=== PATIENT | male | born 1960 | race Caucasian/White ===

== ENCOUNTER 2025-07-04 17:25 | Emergency (ER) | payer OTHER ==
[~2025-07-04] VITALS: Ht 167.6 cm; Wt 99.8 kg
[2025-07-04] MEDS ORDERED: OMEPRAZOLE40 MG PO (18:03)
[2025-07-04] MEDS ORDERED: LOSARTAN POTAS100 M1 PO (18:03)
[2025-07-04] MEDS ORDERED: ESCITALOPRAM OX10 MG PO (18:04)
[2025-07-04] MEDS ORDERED: Acetaminophen/Oxycodone 5 MG/325 MG TABLET PO ONE ×2 (18:30→19:20)
[2025-07-04] MEDS ORDERED: Ondansetron Hydrochloride 4 MG TAB PO ONE (18:30)
[2025-07-04 18:45] LABS: BASO # 0.1 10*3/uL (0.0-0.1); BASO % 0.6 % (0.0-1.0); EOS # 0.5 10*3/uL (0.0-0.4); EOS % 5.9 % (1.0-4.0); MEAN CELL VOLUME 92.4 fl (80.0-94.0); MEAN CORPUSCULAR HGB 29.0 pg (27.0-31.0); MEAN PLATELET VOLUME 10.1 fl (9.6-12.3); MONO # 1.0 10*3/uL (0.1-1.0); MONO % 11.9 % (3.0-9.0); NEUT # 4.1 10*3/uL (2.3-7.9); NEUT % 50.5 % (47.0-73.0); NUCLEATED RED BLOOD CELL 0.0 % (0.0-0.0); NUCLEATED RED BLOOD CELL 0.0 10*3/uL (0.0-0.0); PLATELET COUNT AUTOMATED 314 10*3/uL (130-400); RED CELL DISTRI WIDTH 13.8 % (0-14.5)
[2025-07-04 19:10] LABS: BUN 16 mg/dl (9-23)
[2025-07-04] MEDS ORDERED: NAPROSYN500 MG PO (19:17)
[2025-07-05] MEDS ORDERED: TRELEGY ELLIPT1 EACH INH (07:25)
[2025-07-05] MEDS ORDERED: ALBUTEROL S5 MG/1 ML INH (07:25)
[2025-07-05] MEDS ORDERED: PREDNISONE20 M1 PO (08:00)
[2025-07-05] MEDS ORDERED: METHOCARBAMOL750 M1 PO (08:00)
== END 2025-07-04 19:31 | disposition home or self-care (01) ==
LOC: ED 17:25
PROVIDERS: Emergency Medicine
DX: M25.561 Pain in right knee (principal); I10 Essential (primary) hypertension; Z98.890 Other specified postprocedural states; Z88.1 Allergy status to other antibiotic agents; Z79.899 Other long term (current) drug therapy

== ENCOUNTER 2025-07-05 07:15 | Emergency (ER) | payer OTHER ==
[~2025-07-05] VITALS: Ht 167.6 cm; Wt 99.8 kg
[~2025-07-05 07:15] MED LIST: ESCITALOPRAM OX10 MG PO; LOSARTAN POTAS100 M1 PO; NAPROSYN500 MG PO; OMEPRAZOLE40 MG PO
[2025-07-05] MEDS ORDERED: TRELEGY ELLIPT1 EACH INH (07:25)
[2025-07-05] MEDS ORDERED: ALBUTEROL S5 MG/1 ML INH (07:25)
[2025-07-05] MEDS ORDERED: METHOCARBAMOL750 M1 PO (08:00)
[2025-07-05] MEDS ORDERED: PREDNISONE20 M1 PO (08:00)
== END 2025-07-05 08:08 | disposition home or self-care (01) ==
LOC: ED 07:15
DX: M76.891 Other specified enthesopathies of right lower limb, excluding foot (principal); M25.561 Pain in right knee; M79.661 Pain in right lower leg; Z88.1 Allergy status to other antibiotic agents; Z79.899 Other long term (current) drug therapy